=== PATIENT | male | born 2000 | race Caucasian/White ===

== ENCOUNTER 2021-12-19 08:20 | Outpatient (REF) | payer BC, SELFPAY | END 2021-12-19 08:21 | disposition home or self-care (01) | LOC: HO.BBR 08:20 | PROVIDERS: Visit Provider Internal Medicine Hematology | DX: Z13.89 Encounter for screening for other disorder (principal) ==

== ENCOUNTER 2022-01-20 15:26 | Outpatient (REF) | payer BC, SELFPAY | END 2022-01-20 15:27 | disposition home or self-care (01) | LOC: HO.BBR 15:26 | PROVIDERS: Visit Provider Internal Medicine Hematology | DX: Z13.89 Encounter for screening for other disorder (principal) ==

== ENCOUNTER 2022-02-25 08:04 | Outpatient (REF) | payer BC, SELFPAY | END 2022-02-25 08:05 | disposition home or self-care (01) | LOC: HO.BBR 08:04 | PROVIDERS: Visit Provider Internal Medicine Hematology | DX: Z13.89 Encounter for screening for other disorder (principal) ==

== ENCOUNTER 2022-04-07 08:01 | Outpatient (REF) | payer BC, SELFPAY | END 2022-04-07 08:02 | disposition home or self-care (01) | LOC: HO.BBR 08:01 | PROVIDERS: Visit Provider Internal Medicine Hematology | DX: Z13.89 Encounter for screening for other disorder (principal) ==

== ENCOUNTER 2022-10-03 08:49 | Outpatient (REF) | payer BC, SELFPAY | END 2022-10-03 08:50 | disposition home or self-care (01) | LOC: HO.BBR 08:49 | PROVIDERS: PCP Family Medicine; Visit Provider Internal Medicine Hematology | DX: Z13.89 Encounter for screening for other disorder (principal) ==

== ENCOUNTER 2022-11-04 14:00 | Outpatient (REF) | payer BC, SELFPAY | END 2022-11-04 14:01 | disposition home or self-care (01) | LOC: HO.BBR 14:00 | PROVIDERS: Visit Provider Internal Medicine Hematology | DX: Z13.89 Encounter for screening for other disorder (principal) ==

== ENCOUNTER 2022-12-15 11:56 | Outpatient (REF) | payer BC, SELFPAY | END 2022-12-15 11:57 | disposition home or self-care (01) | LOC: HO.BBR 11:56 | PROVIDERS: Visit Provider Internal Medicine Hematology | DX: Z13.89 Encounter for screening for other disorder (principal) ==

== ENCOUNTER 2023-01-19 08:53 | Outpatient (REF) | payer BC, SELFPAY | END 2023-01-19 08:54 | disposition home or self-care (01) | LOC: HO.BBR 08:53 | PROVIDERS: PCP Family Medicine; Visit Provider Internal Medicine Hematology | DX: Z13.89 Encounter for screening for other disorder (principal) ==

== ENCOUNTER 2023-02-26 09:24 | Outpatient (REF) | payer BC, SELFPAY | END 2023-02-26 09:25 | disposition home or self-care (01) | LOC: HO.BBR 09:24 | PROVIDERS: PCP Family Medicine; Visit Provider Internal Medicine Hematology | DX: Z13.89 Encounter for screening for other disorder (principal) ==

== ENCOUNTER 2023-04-02 10:10 | Outpatient (REF) | payer BC, SELFPAY | END 2023-04-02 10:11 | disposition home or self-care (01) | LOC: HO.BBR 10:10 | PROVIDERS: PCP Family Medicine; Visit Provider Internal Medicine Hematology | DX: Z13.89 Encounter for screening for other disorder (principal) ==

== ENCOUNTER 2023-05-06 08:09 | Outpatient (REF) | payer BC, SELFPAY | END 2023-05-06 08:10 | disposition home or self-care (01) | LOC: HO.BBR 08:09 | PROVIDERS: PCP Family Medicine; Visit Provider Internal Medicine Hematology | DX: Z13.89 Encounter for screening for other disorder (principal) ==

== ENCOUNTER 2023-06-22 11:03 | Outpatient (REF) | payer BC, SELFPAY | END 2023-06-22 11:04 | disposition home or self-care (01) | LOC: HO.BBR 11:03 | PROVIDERS: PCP Family Medicine; Visit Provider Internal Medicine Hematology | DX: Z13.89 Encounter for screening for other disorder (principal) ==